=== PATIENT | female | born 1990 | race Caucasian/White ===

== ENCOUNTER 2018-08-22 08:43 | Day surgery (SDC) | payer OTHER ==
[~2018-08-22] VITALS: Ht 160 cm; Wt 64.8 kg
[~2018-08-22 08:43] MED LIST: ACETAMINOPHEN 650 MG SUPP PR ONE; LR 1,000 ML IV SCH; ZOLO100T PO
[2018-08-22 09:23] LABS: HEMATOCRIT 45.4 % (36.0-47.0); HEMOGLOBIN 15.9 g/dl (12.0-15.5); MEAN CORPUSCULAR HEMOGLOBIN 30.1 pg (27.0-33.0); PLATELET COUNT, AUTOMATED 290 10^3/uL (150-450); RED BLOOD COUNT 5.28 10^6/uL (4.00-5.40); WHITE BLOOD COUNT 5.3 10^3/uL (4.0-10.0)
[2018-08-22 09:51] LABS: BLOOD UREA NITROGEN 14 MG/DL (7-18); CHLORIDE LEVEL 109 MEQ/L (98-107); CREATININE FOR GFR 0.66 MG/DL (0.55-1.30); GLOMERULAR FILTRATION RATE > 60.0 (>60); GLUCOSE, FASTING 90 MG/DL (70-100); POTASSIUM SERUM 4.3 MEQ/L (3.5-5.1); SODIUM LEVEL 143 MEQ/L (136-145)
[2018-08-22 09:52] LABS: CALCIUM LEVEL 8.6 MG/DL (8.5-10.1); CARBON DIOXIDE LEVEL 31 MEQ/L (21-32); HCG, SERUM QUANTITATIVE < 1.0 MIU/ML
[2018-08-22] MEDS ORDERED: PROPOFOL 200 MG/20 ML VIAL As Ordered ONE (09:53)
[2018-08-22] MEDS ORDERED: KETOROLAC 60 MG/2 ML VIAL (J1885) As Ordered ONE (09:53)
[2018-08-22] MEDS ORDERED: ROCURONIUM BROMIDE 50 MG/5 ML VIAL As Ordered ONE (09:53)
[2018-08-22] MEDS ORDERED: ONDANSETRON 4MG/2ML VIAL (J2405) As Ordered ONE ×2 (09:53→12:24)
[2018-08-22] MEDS ORDERED: dexameTHASONE 4 MG/ML 1ML VIAL (J1100) As Ordered ONE (09:53)
[2018-08-22] MEDS ORDERED: LIDOCAINE 2% INJ 100 MG/5 ML SDV (FOR ANES.) As Ordered ONE (09:53)
[2018-08-22] MEDS ORDERED: fentaNYL 100 MCG/2 ML INJECTION (J3010) As Ordered ONE ×2 (09:59→11:43)
[2018-08-22] MEDS ORDERED: MIDAZOLAM INJ 2 MG/2 ML VIAL (J2250) As Ordered ONE (09:59)
[2018-08-22] MEDS ORDERED: ACETAMINOPHEN 650 MG SUPP As Ordered ONE (10:39)
[2018-08-22] MEDS ORDERED: BUPIVACAINE HCL 0.25% 10 ML VIAL As Ordered ONE (10:39)
[2018-08-22] MEDS ORDERED: ePHEDrine SULFATE 25 MG/5 ML(5MG/ML) SYRINGE As Ordered ONE (11:39)
[2018-08-22] MEDS ORDERED: SUGAMMADEX SODIUM 500 MG/5 ML VIAL (BRIDION) As Ordered ONE (11:41)
[2018-08-22] MEDS ORDERED: LR 1,000 ML IV SCH (12:30)
[2018-08-22] MEDS ORDERED: ONDANSETRON 4MG/2ML VIAL (J2405) IV PRN (12:30)
[2018-08-22] MEDS ORDERED: PERCOCET 5MG/325MG TAB PO PRN (12:30)
[2018-08-22] MEDS ORDERED: MORPHINE 10 MG/ML 1ML VIAL (J2270) IV PRN (12:30)
[2018-08-22] MEDS ORDERED: fentaNYL 100 MCG/2 ML INJECTION (J3010) IV PRN (12:30)
[2018-08-22 14:25] VITALS: BP 109/62
[2018-08-22] MEDS ORDERED: KETOROLAC 30 MG/ML VIAL (J1885) IM PRN (18:00)
--- NOTE | 2018-08-29 18:44 | RO ---
DATE OF PROCEDURE: 08/22/2018 PREOPERATIVE DIAGNOSIS: Satisfied parity, impacted intrauterine contraceptive device (IUCD). POSTOPERATIVE DIAGNOSIS: Satisfied parity, impacted intrauterine contraceptive device. OPERATION PROPOSED: Operative laparoscopy, bilateral salpingectomy, hysteroscopy, dilation and curettage (D and C), removal of intrauterine contraceptive device. OPERATION PERFORMED: Operative laparoscopy, bilateral salpingectomy, removal of intrauterine device. No hysteroscopy. SURGEON: Dr. Alex Hammonds METHODS ANALYST DATA PROCESSING: Dr. Alfred Gaston ANESTHESIA: General plus local anesthetic for intraperitoneal procedures. ESTIMATED BLOOD LOSS: Less than 30 mL. DESCRIPTION OF PROCEDURE: After adequate time-out, prepped and draped in the lithotomy position, Jones catheter in the bladder draining clear urine. Sequentials on board, acetaminophen suppository 1300 mg per rectum. Weighted speculum in vagina. Single-tooth tenaculum on the anterior lip of the cervix. A uterine elevator was placed in endocervical canal. Reprepping and draping, changing of gloves, a small periumbilical incision was made. Veress needle was applied, 3.8 liters of CO2 at a flow rate of 3 liters to maximum pressure of 14, direct entry with a 5 mm 0 scope. No evidence of perforation, hemorrhage or bleeding. Panoramic review, right upper quadrant was normal. Right round ligament showed an inguinal hernia in which we could actually put the scope in and go down. Anterior fundal part of the uterus showed a small myoma approximately 2 x 2 cm, appeared to be calcified. Anterior aspect of the bladder was clear. There was one spot of endometriosis noted on the area on the right side where the ureter passes down to the bladder. No other evidence of endometriosis was noted. Some old stage endometriosis on the peritoneum in the cul-de-sac was noted, but it was not actually viable. The appendix was rather long, was normal with no evidence of endometriosis or inflammatory process. A 5 mm port was placed on the right side, a 5 mm port was placed on the left side. Then, with the LigaSure, we grasped the right tube right to the fimbriated end and excised off the right tube right to the cornua. This tube was removed intact and sent off to pathology under separate cover. We then went ahead and picked up the left tube to the fimbriated, excised off the left tube with the LigaSure right up to the cornual end and the left tube was also removed intact out of the left port. With that done, instrument and pad count correct, we lavaged out the abdomen. No evidence of active bleeding. Viewed the right and left ovary, which were completely normal, and no other evidence of pathology was noted. With instrument and pad count correct, we deflated to 0 pressure removing the 5 mm ports on either side, the main port as well. We did three subcuticular stitches with Marcaine 0.25% to all incisions sites. Skin tapes were done. With instrument and pad count correct, we moved to below. We removed the dilator and the strings were visible; therefore, we pulled on the strings, the intrauterine device (IUD) came out quite easily, and we sent that off to pathology for gross specimen. No evidence of active bleeding. The tenaculum was removed. No need for hysteroscopy. Uterus was placed in anatomical position, Jones catheter was removed, and the patient was sent to recovery in good condition.
== END 2018-08-22 14:35 | disposition home or self-care (01) ==
LOC: M SDC 08:43
PROVIDERS: ATTEND Obstetrics & Gynecology
DX: Z30.2 Encounter for sterilization (principal); T83.39XA Other mechanical complication of intrauterine contraceptive device, initial encounter; F41.9 Anxiety disorder, unspecified; F32.9 Major depressive disorder, single episode, unspecified; Z79.899 Other long term (current) drug therapy; Z87.891 Personal history of nicotine dependence
CPT/HCPCS: 36415; 58301; 58661; 80048; 84702; 85027; 88300; 88302; J1100; J1885; J2250; J2405; J3010